=== PATIENT | female | born 1980 | race Caucasian/White ===

== ENCOUNTER 2024-12-23 20:55 | Emergency (ER) | payer SELFPAY | END 2024-12-23 21:30 | disposition left against medical advice (07) | LOC: ERS 20:55 | DX: Z53.21 Procedure and treatment not carried out due to patient leaving prior to being seen by health care provider (principal) ==

== ENCOUNTER 2025-01-06 16:16 | Emergency (ER) | payer OTHER, SELFPAY ==
[2025-01-06] MEDS ORDERED: Ketorolac Tromethamine 30 MG (1 mL) VIAL ONE (17:00)
[2025-01-06] MEDS ORDERED: Ondansetron PF 4 MG/2 ML Vial ONE (17:00)
== END 2025-01-06 18:28 | disposition home or self-care (01) ==
LOC: ERS 16:16
DX: M54.2 Cervicalgia (principal); R51.9 Headache, unspecified; I10 Essential (primary) hypertension; Z79.899 Other long term (current) drug therapy
CPT/HCPCS: 70450; 72125; 96374; 96375; 96376; J1885; J2919